=== PATIENT | male | born 1970 | race Caucasian/White ===

== ENCOUNTER 2024-02-03 16:19 | Outpatient (CLI) | payer BC, SELFPAY ==
--- NOTE | ~2024-02-03 | CT_ITS ---
EXAMINATION: CT lumbar spine wo con DATE: 02/03/2024 16:38 INDICATION: Vertebrogenic low back pain. TECHNIQUE: Computed tomography (CT) of the lumbar spine was performed without intravenous contrast. A utomated exposure control and iterative reconstruction technique were employed. The dose-length produ ct was 436.61 mGy-cm. COMPARISON: None FINDINGS: There is a 4.8 cm mass of right kidney measuring soft tissue attenuation. There is 5 degree s dextrocurvature of thoracolumbar spine. There is mild chronic anterior wedging of T11-L1 vertebral bodies. There is mildly decreased disc height at L1-L2, L2-L3, and L3-L4, moderately decreased disc h eight at L4-L5, and mildly decreased disc height at L5-S1. The following disc levels are specifically discussed: L1-L2: The disc does not extend beyond the endplate margin. There is moderate bilateral facet joint o steoarthritis. There is no neural foraminal stenosis. There is no central canal stenosis. L2-L3: The disc is bulging. There is mild bilateral facet joint osteoarthritis. There is mild bilater al neural foraminal stenosis. There is mild central canal stenosis. L3-L4: The disc is bulging. There is mild bilateral facet joint osteoarthritis. There is mild right a nd moderate left neural foraminal stenosis. There is mild central canal stenosis. L4-L5: The disc is bulging. There is severe bilateral facet joint osteoarthritis. There is mild bilat eral neural foraminal stenosis. There is moderate central canal stenosis. L5-S1: The disc is bulging. There is severe bilateral facet joint osteoarthritis. There is mild bilat eral neural foraminal stenosis. There is mild central canal stenosis. IMPRESSION: 1. 4 2 cm mass in right kidney, which may be a hemorrhagic cyst or renal cell carcinoma. Abdomen CT w ithout and with contrast is recommended. 2. Moderate lumbar spondylosis. Reviewed, dictated and finalized at location A. IMPRESSION: 1. 4 2 cm mass in right kidney, which may be a hemorrhagic cyst or renal cell c arcinoma. Abdomen CT without and with contrast is recommended. 2. Moderate lumbar spondylosis.
== END 2024-02-03 16:20 | disposition home or self-care (01) ==
PROVIDERS: PCP Family Medicine; Visit Provider Nurse Practitioner Family
DX: M54.51 Vertebrogenic low back pain (principal); N28.89 Other specified disorders of kidney and ureter; M43.06 Spondylolysis, lumbar region
CPT/HCPCS: 72131